=== PATIENT | male | born 1970 | race Caucasian/White ===

== ENCOUNTER → 2020-01-30 07:07 | Outpatient (CLI) | payer OTHER, SELFPAY ==
[2020-01-22 08:05] VITALS: BMI 30.1
--- NOTE | 2020-01-30 07:08 | CT_ITS ---
STUDY: CT RIGHT SHOULDER REASON FOR EXAM: Male, 49 years old. RT SHOULDER STRAIN, INJURED AT WORK IN DECEMBER, NO PREV SURG, HX-DB RADIATION DOSAGE (If Supplied By Facility): CTDIvol = ( 25.32 ) mGy, DLP = ( 457.14 ) mGycm TECHNIQUE: The patient was scanned in a multi detector CT scanner. High resolution transaxial imaging was performed without the administration of intravenous contrast material. Sagittal and coronal images were reconstructed. Individualized dose optimization techniques were used for this CT. COMPARISON: None. FINDINGS: Normal glenohumeral articulation. Minimal spurring is seen along the glenoid in its superior posterior aspect. Normal humeral head, neck and tuberosities. Normal coracoid process. Normal visualized lateral clavicle. Normal acromioclavicular articulation. There is a Type II morphology (curved), with a neutral orientation. Normal visualized muscles and soft tissue structures. CT/Extremity Upper WITH Contrast IMPRESSION: Minimal degenerative spurring is seen in the superior posterior aspect of the glenoid. Electronically Signed: Solomon Hanks, at 8:15 EDT , Service support ,
[2020-01-30 07:25] LABS: CREATININE FINGERSTICK 0.9 mg/dL (0.70-1.30); EGFR FINGERSTICK > 60.0000 mL/min (>60)
== END ==
PROVIDERS: PCP Family Medicine; Referring Provider Physician Assistant Surgical; Visit Provider Physician Assistant Surgical
DX: S46.911A Strain of unspecified muscle, fascia and tendon at shoulder and upper arm level, right arm, initial encounter (principal)
CPT/HCPCS: 73201; Q9967